=== PATIENT | female | born 1970 | race Caucasian/White ===

== ENCOUNTER 2016-07-05 19:03 | Emergency (ER) | payer OTHER ==
[~2016-07-05 19:03] MED LIST: ADVIL200 M1 PO; ADVIL200 M2 PO; ADVIL200 M3 PO; ASPIR-LOW81 M1 PO; BAYER CHEWABLE81 M2 PO; KEPPRA500 M3 PO; LOVENOX40 MG/0.4 SQ; NUCYNTA50 MG PO; OXCARBAZEPINE300 MG PO; OXTELLAR PO; OXYCONTIN20 M2 PO; PERCOCET 5-3251 EACH PO; PHENERGAN12.5 M2 PO; PROMETHAZINE HC25 M3 PO; ROPIVACAINE IJ; ROPIVACAINE SC; TYLENOL325 M2 PO
[2016-07-05] MEDS ORDERED: VITAMIN D5000 UNI1 PO (19:31)
[2016-07-05] MEDS ORDERED: WOMEN'S DAILY1 EAC4 PO (19:31)
[2016-07-05] MEDS ORDERED: MAXALT MLT10 MG PO (19:32)
[2016-07-05] MEDS ORDERED: CORGARD20 M2 PO (19:32)
[2016-07-05 19:36] LABS: BASO % 0.2 % (0-2); EOS % 0.7 % (0-7); EOSINOPHIL ABSOLUTE COUNT 0.1 tho/cmm (0.0-0.7); HCT-HEMATOCRIT 43.4 % (34.0-49.0); HGB-HEMOGLOBIN 15.3 gm/dl (12.0-15.5); IMMATURE GRANULOCYTES ABSOLUTE 0.02 tho/cmm (0-0.03); IMMATURE GRANULOCYTES PERCENT 0.2 % (0-0.3); LYMPH % 19.1 % (20-45); LYMPH ABSOLUTE COUNT 2.1 tho/cmm (0.8-4.5); MCH (MEAN CORPUSCULAR HGB) 30.5 pg (28.0-32.0); MCHC MEAN CORPUSCULAR HGB CONC 35.3 % (32.0-36.0); MCV (MEAN CELL VOLUME) 86.5 fl (82.0-96.0); MEAN PLATELET VOLUME 10.6 cmc (9.4-12.4); MONO % 5.4 % (0-12); MONOCYTE ABSOLUTE COUNT 0.6 tho/cmm (0.0-1.2); NEUTROPHILS % 74.4 % (40-80); PLATELET COUNT 231 tho/cmm (150-450); RED BLOOD COUNT 5.02 mil/cmm (4.00-5.20); RED CELL DISTRIBUTION WIDTH 12.6 % (12.4-16.4); WHITE BLOOD COUNT 10.7 tho/cmm (4.0-10.0)
[2016-07-05 19:51] LABS: ALBUMIN 4.2 g/dl (3.5-5.0); ALKALINE PHOSPHATASE 122 U/L (33-138); ALT/SGPT 34 U/L (12-78); ANION GAP 15 mmol/L (0-20); AST/SGOT 22 U/L (10-40); BILIRUBIN,TOTAL 0.5 mg/dl (0-1.5); BLOOD UREA NITROGEN 9 mg/dl (6-24); CALCIUM 9.1 mg/dl (8.5-10.5); CARBON DIOXIDE-VENOUS 22 mmol/L (22-32); CHLORIDE 108 mmol/l (96-110); CREATININE 0.78 mg/dl (0.50-1.10); GLUCOSE 94 mg/dL (70-110); POTASSIUM 3.5 mmol/L (3.7-5.1); SODIUM 141 mmol/L (135-145); eGFR VALUE FOR BLACK >90 mL/Min
[2016-07-05 20:56] LABS: URINE BILIRUBIN NEGATIVE (NEG); URINE BLOOD NEGATIVE (NEG); URINE GLUCOSE (UA) NEGATIVE (NEG); URINE KETONE LARGE (NEG); URINE LEUKOCYTE ESTERASE POSITIVE (NEG); URINE NITRITE NEGATIVE (NEG); URINE PROTEIN MODERATE (NEG)
[2016-07-05 20:57] LABS: URINE APPEARANCE HAZY; URINE COLOR YELLOW
[2016-07-05 21:01] LABS: URINE BACTERIA 2+; URINE RBC 0-1 /[HPF] (0-5)
[2016-07-05 21:02] LABS: URINE EPITHELIAL CELLS 20-40 /[HPF] (0-10)
[2016-07-05] MEDS ORDERED: ZOFRAN ODT4 MG PO (21:33)
== END 2016-07-05 22:15 ==
LOC: EDMED 19:03
PROVIDERS: Emergency Medicine; Physician Assistant
DX: R11.2 Nausea with vomiting, unspecified (principal); G40.909 Epilepsy, unspecified, not intractable, without status epilepticus; Z79.899 Other long term (current) drug therapy; Z98.890 Other specified postprocedural states; Z87.891 Personal history of nicotine dependence
CPT/HCPCS: J2405; J7030